=== PATIENT | male | born 2005 | race Caucasian/White ===

== ENCOUNTER 2025-05-29 00:01 | Emergency (ER) | payer OTHER ==
[~2025-05-29] VITALS: Ht 198.1 cm; Wt 133.8 kg
[2025-05-29 00:26] VITALS: PULSE 78; RESP 16; TEMP 98.3; O2SAT 100
== END 2025-05-29 01:09 | disposition home or self-care (01) ==
LOC: ER 00:34
DX: R09.81 Nasal congestion (principal)
CPT/HCPCS: 99282